=== PATIENT | male | born 1990 | race Caucasian/White ===

== ENCOUNTER 2021-04-03 15:41 | Emergency (ER) | payer OTHER ==
[2021-04-03] MEDS ORDERED: NORFLEX 100 MG100 MG PO (20:42)
[2021-04-03] MEDS ORDERED: LODINE CAP 300300 MG PO (20:42)
== END 2021-04-03 18:40 | disposition left against medical advice (07) ==
LOC: ER1 15:41
DX: Z53.21 Procedure and treatment not carried out due to patient leaving prior to being seen by health care provider (principal)
CPT/HCPCS: 71045; 73000; 73030

== ENCOUNTER 2021-04-03 20:22 | Emergency (ER) | payer OTHER ==
[2021-04-03] MEDS ORDERED: LODINE CAP 300300 MG PO (20:42)
[2021-04-03] MEDS ORDERED: NORFLEX 100 MG100 MG PO (20:42)
== END 2021-04-03 20:47 | disposition home or self-care (01) ==
LOC: ER1 20:22
DX: S40.011A Contusion of right shoulder, initial encounter (principal); R07.89 Other chest pain; Z90.89 Acquired absence of other organs; F17.290 Nicotine dependence, other tobacco product, uncomplicated; Y08.89XA Assault by other specified means, initial encounter
CPT/HCPCS: 99283

== ENCOUNTER 2021-04-22 13:44 | Emergency (ER) | payer OTHER ==
[~2021-04-22 13:44] MED LIST: LODINE CAP 300300 MG PO; NORFLEX 100 MG100 MG PO
[2021-04-22] MEDS ORDERED: NAPROSYN500 MG PO (17:06)
== END 2021-04-22 17:30 | disposition home or self-care (01) ==
LOC: ER1 13:44
DX: S29.9XXA Unspecified injury of thorax, initial encounter (principal); F17.290 Nicotine dependence, other tobacco product, uncomplicated; Z90.89 Acquired absence of other organs; Y08.89XA Assault by other specified means, initial encounter
CPT/HCPCS: 71046; 99283